=== PATIENT | male | born 1990 | race African-American/Black ===

== ENCOUNTER 2017-10-30 23:07 | Emergency (ER) | payer OTHER ==
[~2017-10-30] VITALS: Ht 190.5 cm; Wt 90.4 kg
[2017-10-30 23:10] VITALS: BP 134/68
[2017-10-30] MEDS ORDERED: LIDOCAINE/EPI/TETRACAINE TOPICAL GEL 3 ML. TP ONE (23:45)
--- NOTE | 2017-10-31 00:05 | PHYS DOC ---
General Chief Complaint: LACERATION/AVULSION Stated Complaint: RT EYE INJURY Time Seen by MD: 23:11 Source: patient, family Exam Limitations: no limitations Problems: History of Present Illness Initial Comments Patient is a 27-year-old male accompanied to the ED by his spouse with a sports- related right eye injury. 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 He says he had pain initially at the site as well as being dazed and has had a global throbbing moderate headache since that time. He denies loss of consciousness or vision changes no nausea vomiting or focal neurologic deficit. Headache and initial days symptoms have not progressed and have been improving, patient states that he bled profusely from his right upper eyelid initially but was able to reenter the game and finish the contest. He denies any bony tenderness no pain with extraocular movement and no new or progressive symptoms. Tetanus status is reportedly up-to-date and despite having tattoos covering most of the exposed skin proclaims his severe fear of needles. He is requesting that we not suture the wound but use glue. Tetanus status is reportedly up-to-date Occurred: this evening Severity: mild Location: other Method of Injury: sports injury Loss of Consciousness: no loss of consciousness Associated Symptoms: headaches, other Allergies: Coded Allergies: No Known Drug Allergies (Unverified , 11/22/14) Past Medical History Medical History: no medical history Surgical History: noncontributory Social History Smoker: non-smoker Alcohol: none Drugs: none Review of Systems Constitutional: denies chills, denies diaphoresis, denies fever, denies malaise Eyes: see HPI Ears, Nose, Mouth, Throat: denies ear pain, denies ear discharge, denies nose discharge, denies epistaxis Respiratory: denies cough, denies shortness of breath Cardiovascular: denies chest pain, denies palpitations, denies syncope Gastrointestinal: denies nausea, denies vomiting Musculoskeletal: denies back pain, denies joint pain, denies joint swelling, denies muscle pain, denies neck pain Skin: see HPI Psychiatric/Neurological: see HPI Physical Exam General Appearance: WD/WN, no apparent distress Head: other (other than a very small skin avulsion at the right eyelid head is normocephalic atraumatic negative Mejia sign negative raccoon eyes no scalp tenderness no periorbital bony tenderness) Eyes: bilateral eye PERRL, bilateral eye EOMI Ears, Nose, Throat, Mouth: hearing grossly normal, no evidence of ENT injury ( no ear or nose discharge no fluid behind TMs bilaterally), no dental injury Neck: non-tender, full range of motion, normal alignment, normal inspection Cardiovascular/Respiratory: normal peripheral pulses, no respiratory distress Gastrointestinal: non tender, soft Back: normal inspection, no vertebral tenderness Extremities: non-tender, normal inspection Psychiatric: alert, oriented x 3 Cranial Nerves: normal hearing, normal speech, PERRL Coordination/Gait: normal finger to nose, normal gait Motor/Sensory: no motor deficit, no sensory deficit Skin: normal color, warm/dry Pepito Coma Score Best Eye Response: (4) open spontaneously Best Verbal Response: (5) oriented Best Motor Response: (6) obeys commands Pepito Total: 15 Orders, Labs, Meds Right eye there is a 0.5 cm very superficial skin avulsion involving only the superficial epidermis, there is no gaping wound or active bleeding. The wound is located at the upper most portion of the eyelid and appears to be clean without contused tissue. Patient understands that if tissue adhesive is used he will need to keep the area dry for at least 48 hours and he persists in his refusal of needles and sutures. To ensure no further bleeding while cleaning the wound LET was applied topically and allowed to sit for 10 minutes after which the wound was cleansed by the RN and I applied tissue adhesive. I tried to approximate the epidermal layers with fairly good result and Steri-Strips were applied overlying the Mastisol. Patient tolerated it well no complications and had no new or changing symptoms throughout his ED stay. Patient states that he has a scrimmage tomorrow night and then no game until next weekend. I discussed concussion precautions and advised the patient that he should not play in the contest and should refrain from exercise and strenuous activity until cleared by doctor. I also discussed and reiterated wound care including keeping the wound dry for 48 hours and allowing the Steri- Strips to fall off on their own. I discussed signs and symptoms to monitor as well as indications for urgent return to the department. The patient and his spouse's questions were answered to their satisfaction and they expressed agreement and understanding with treatment plan. Departure Time of Disposition: 00:03 Disposition: 01 HOME, SELF-CARE Diagnosis: concussion, facial laceration/avulsion Condition: GOOD Patient Instructions: Concussion-SportsMed, Tissue Adhesive Wound Care, Easy-to -Read Additional Instructions: Please review the patient education materials given by ED staff. Keep the wound dry for 48 hours. After 48 hours may wash briefly with soap and warm water, blot dry. Leave Steri-Strips in place until they fall off. No strenuous activity, exercise, or athletics until symptoms have resolved completely and you are cleared by your doctor. [id number] Tylenol as needed for discomfort. Follow-up with your doctor in 3-5 days for wound check, recheck of concussion, and further activity restriction modifications. Return to ED with new or changing symptoms. DIONNE MCKENZIE DO Oct 31, 2017 00:05
== END 2017-10-31 00:12 | disposition home or self-care (01) ==
LOC: ER 10-31 00:11
DX: S06.0X0A Concussion without loss of consciousness, initial encounter (principal); S05.71XA Avulsion of right eye, initial encounter; W50.0XXA Accidental hit or strike by another person, initial encounter; Y93.67 Activity, basketball; Y99.8 Other external cause status; Y92.89 Other specified places as the place of occurrence of the external cause
CPT/HCPCS: 12011; 99283-25

== ENCOUNTER 2018-01-16 09:54 | Emergency (ER) | payer OTHER ==
[~2018-01-16] VITALS: Ht 188 cm; Wt 89.8 kg
[2018-01-16 10:03] VITALS: BP 118/28
--- NOTE | 2018-01-16 10:25 | PHYS DOC ---
Past History Past Medical History: No Pertinent History Past Surgical History: Other Smoking: Non-smoker Alcohol Use: None Drug Use: None Adult General Chief Complaint Chief Complaint: KNEE INJURY HPI HPI 27-year-old male patient with basketball last night and after dunking landed on his feet and felt some discomfort in his left knee but was able to continue the game that gradually felt more pain in his left knee that getting worse with walking. Patient states his morning she feels pain in posterior of his knee with walking. Patient denies edema or erythema or focal neuro deficit patient did not take any pain medication. Review of Systems Review of Systems Constitutional: Denies fever or chills [] Eyes: Denies change in visual acuity, redness, or eye pain [] HENT: Denies nasal congestion or sore throat [] Respiratory: Denies cough or shortness of breath [] Cardiovascular: No additional information not addressed in HPI [] GI: Denies abdominal pain, nausea, vomiting, bloody stools or diarrhea [] : Denies dysuria or hematuria [] Musculoskeletal: Denies back pain, reports joint pain [] Integument: Denies rash or skin lesions [] Neurologic: Denies headache, focal weakness or sensory changes [] Endocrine: Denies polyuria or polydipsia [] All other systems were reviewed and found to be within normal limits, except as documented in this note. Allergies Allergies Allergies Coded Allergies Type Severity Reaction Last Updated Verified No Known Drug Allergies 11/22/14 No Physical Exam Physical Exam Constitutional: Well developed, well nourished, no acute distress, non-toxic appearance. [] HENT: Normocephalic, atraumatic, bilateral external ears normal, oropharynx moist, no oral exudates, nose normal. [] Eyes: PERRLA, EOMI, conjunctiva normal, no discharge. [] Neck: Normal range of motion, no tenderness, supple, no stridor. [] Cardiovascular:Heart rate regular rhythm, no murmur [] Lungs & Thorax: Bilateral breath sounds clear to auscultation [] Extremities: Left knee without deformity or edema or tenderness, nontender range of motion, no neurovascular deficit Neurologic: Alert and oriented X 3, normal motor function, normal sensory function, no focal deficits noted. [] Psychologic: Affect normal, judgement normal, mood normal. [] EKG EKG [] Radiology/Procedures Radiology/Procedures [] [address] [address] IMAGING REPORT Signed PATIENT: CARLYLE FRANKS ACCOUNT: [id number] : 1990 LOCATION: ER AGE: 27 SEX: M EXAM STATUS: REG ER ORD. PHYSICIAN: JONEL ROGEL MD REASON: hurt playing basketball PROCEDURE: KNEE LEFT 3V Indication: Left knee pain for one day. Technique: 3 views of the left knee Comparison: None Findings: No acute fracture or dislocation. No arthritic process. No soft tissue abnormality. No evidence of a joint effusion. Impression: No acute findings. DICTATED AND SIGNED BY: CURTIS GONZALES DO DATE: 01/16/18 1024 CC: JONEL ROGEL MD; PCP,NO ~ Course & Med Decision Making Course & Med Decision Making Pertinent Imaging studies reviewed. (See chart for details) Evaluation of patient in ER showed 27-year-old male patient with pain in his left knee after a sports injury. Patient had unremarkable physical exam and x- ray of his knee. Plan to apply Tera wrap and instruction to apply ice and taking ibuprofen and avoid of sports for several days. Patient instructed to follow with his primary care physician for further evaluation if needed. []discharge: I've spoken with the patient and/or caregivers. I've explained the patient's condition, diagnosis and treatment plan based on information available to me at this time. I've answered the patient's and/or caregivers questions and addressed any concerns. The patient and/or caregivers have a good understanding the patient's diagnosis, condition and treatment plan as can be expected at this point. Vital signs have been stabilized. The patient's condition is stable for discharge from the emergency department. The patient will pursue further outpatient evaluation with her primary care provider or other designated consulting physician as outlined in the discharge instructions. Patient and/or caregivers are agreeable to this plan of care and follow-up instructions have been explained in detail. The patient and/or caregivers have received these instructions in written format and expressed understanding of these discharge instructions. The patient and her caregivers are aware that if any significant change in condition or worsening of symptoms should prompt him to immediately return to this of the closest emergency department. If an emergent department is not readily available I would encourage him to call 911. Brooks Disclaimer Brooks Disclaimer This electronic medical record was generated, in whole or in part, using a voice recognition dictation system. Departure Departure: Impression: Primary Impression: Left knee sprain Disposition: HOME, SELF-CARE (At 1032) Condition: STABLE Referrals: PCP,NO (PCP) Patient Instructions: Knee Sprain Additional Instructions: Apply ice to affected area Follow-up with your primary care physician in 3-5 days Return to ER if not getting better Scripts Ibuprofen (IBUPROFEN) 800 Mg Tablet 1 TAB PO TID, #30 TAB Prov: JONEL ROGEL MD 01/16/18 JONEL ROGEL MD Jan 16, 2018 10:25
[2018-01-16] MEDS ORDERED: IBUP800T19 PO (10:33)
== END 2018-01-16 10:43 | disposition home or self-care (01) ==
LOC: ER 09:54
DX: S83.92XA Sprain of unspecified site of left knee, initial encounter (principal); W19.XXXA Unspecified fall, initial encounter; Y93.67 Activity, basketball; Y99.8 Other external cause status; Y92.89 Other specified places as the place of occurrence of the external cause
CPT/HCPCS: 73562; 99284